=== PATIENT | female | born 1995 | race African-American/Black ===

== ENCOUNTER 2017-11-30 21:39 | Emergency (ER) | payer SELFPAY ==
[~2017-11-30] VITALS: Ht 167.6 cm; Wt 62.0 kg
[2017-12-01 02:30] VITALS: BP 122/76
== END 2017-12-01 03:35 | disposition home or self-care (01) ==
LOC: ER 21:42
DX: S61.301A Unspecified open wound of left index finger with damage to nail, initial encounter (principal); W26.8XXA Contact with other sharp object(s), not elsewhere classified, initial encounter; Y93.89 Activity, other specified; Y92.89 Other specified places as the place of occurrence of the external cause; Y99.8 Other external cause status
CPT/HCPCS: 11730; 99283